=== PATIENT | female | born 1990 | race Two or more races ===

== ENCOUNTER 2024-10-12 21:53 | Emergency (ER) | payer OTHER ==
[~2024-10-12] VITALS: Ht 175.3 cm; Wt 82.1 kg
[2024-10-12] MEDS ORDERED: IBUprofen 100 MG/5 ML-120ML ML PO STA (22:19)
== END 2024-10-13 00:08 | disposition home or self-care (01) ==
LOC: ER 21:56
DX: M25.572 Pain in left ankle and joints of left foot (principal)